=== PATIENT | male | born 1980 | race Hispanic/Latino ===

== ENCOUNTER 2021-04-16 11:49 | Emergency (ER) | payer SELFPAY ==
--- NOTE | 2021-04-16 12:02 | ED.GENADULT ---
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 Patient states he has not been feeling well for the last 5 days. They checked his blood sugar at work and sent him to be evaluated for his bilateral lower extremity swelling and elevated blood sugar. most of his medications have not been filled since May of last year. States they cannot get in with Dr. Williamson office. Has not taken his blood pressure medication in over 3 months. Last fill on half the medications was May 2020 Blood sugar in [facility] 215 Onset (ago): day(s) (5) Related Data Home Medications Medication Instructions Recorded Confirmed amlodipine 10 mg PO DAILY 04/16/21 04/16/21 atorvastatin 20 mg PO DAILY 04/16/21 04/16/21 lisinopril-hydrochlorothiazide 1 tablet PO DAILY 04/16/21 04/16/21 metformin 500 mg PO BID 04/16/21 04/16/21 metoprolol succinate 04/16/21 Allergies Allergy/AdvReac Type Severity Reaction Status Date / Time No Known Allergies Allergy Verified 04/16/21 12:03 Review of Systems Review of Systems: All systems reviewed & are unremarkable except as noted in HPI and below Constitutional: Constitutional: Reports no additional constitutional complaints, Denies chills and Denies fever(s) Eyes: Eyes: Reports no additional eye complaints ENT: Reports system reviewed and no additional complaints, except as documented Cardiovascular: Cardiovascular: Reports as per HPI, Denies chest pain, Denies rapid heart rate, Reports pedal edema, Reports leg edema and Denies radiating jaw, neck or arm pain Respiratory: Respiratory: Reports no additional respiratory complaints, Denies cough, Denies dyspnea and Denies wheezing Gastrointestinal: Gastrointestinal: Reports no additional gastrointestinal complaints, Denies abdominal pain, Denies nausea and Denies vomiting Musculoskeletal: Musculoskeletal: Reports no additional musculoskeletal complaints Integumentary/Breasts: Skin/Breast: Reports system reviewed and no additional complaints, except as docu Neurologic: Reports system reviewed and no additional complaints, except as documented Psychiatric: Psychiatric: Reports no additional psychiatric complaints Allergic/Immunologic: Allergic/Immunologic: Reports no additional allergic/immunologic complaints [facility] Past Medical History Medical History (Updated 04/16/21 @ 12:43 by Lisa Fishman) CHF (congestive heart failure) Hypertension Type II diabetes mellitus Surgical History Surgical History (Updated 04/16/21 @ 12:17 by Lisa Fishman) No significant past surgical history Comments At the time of my signature, I reviewed and agree with the nursing past medical, surgical, social, and family history. There is no relevant family history pertinent to the patient complaint. Exam Const: General: healthy appearing, no acute distress and alert Nutritional Appearance: well nourished Orientation/consciousness: patient oriented x3 Limitations: no limitations HENMT: Head: normal to inspection Ears: external ears normal Eyes: Pupils: Equal, round and reactive pupils present Neck: Neck: normal visual inspection, no lymphadenopathy and no meningeal signs Chest: Chest palpation & inspection: normal inspection of the chest Resp: Effort & Inspection: normal respiratory effort and no use of accessory muscles Auscultation: clear to auscultation bilaterally, no crackles, no rales, no rhonchi and no wheezes Cardio: Rate: regular rate Rhythm: regular rhythm GI: GI Palp: Yes Soft to palpation and No Tenderness to palpation present (GI)
[2021-04-16 12:07] VITALS: BP 166/109; PULSE 82; RESP 16; TEMP 36.5; O2SAT 98
[2021-04-16 12:11] LABS: Glucose Point of Care 215 mg/dl (65-105)
--- NOTE | 2021-04-16 12:22 | PC.NURSE ---
did request [facility] for further evaluation.
== END 2021-04-16 12:26 | disposition short-term general hospital (02) ==
LOC: EXPCOLL 11:57
PROVIDERS: Emergency Provider Nurse Practitioner
DX: R60.0 Localized edema (principal); I11.0 Hypertensive heart disease with heart failure; I50.9 Heart failure, unspecified; Z91.14 Patient's other noncompliance with medication regimen; E11.65 Type 2 diabetes mellitus with hyperglycemia
CPT/HCPCS: 82948; 99202; G0463

== ENCOUNTER 2021-04-16 12:50 | Emergency (ER) | payer SELFPAY ==
--- NOTE | ~2021-04-16 | XR_ITS ---
EXAMINATION: XR chest 2V DATE: 04/16/2021 22:03 INDICATION: Extremity edema. TECHNIQUE: Frontal and lateral views of the chest were obtained. COMPARISON: None. FINDINGS: The chest demonstrates clear lungs without pneumonia, pleural effusion, or pneumothorax. Th e heart size is normal. There is mild chronic anterior wedging of multiple vertebral bodies. IMPRESSION: 1. No acute cardiopulmonary disease. Reviewed, dictated and finalized at location A. R DIPPER
[2021-04-16 13:01] VITALS: BP 174/102; PULSE 92; RESP 20; TEMP 36.8; O2SAT 98
[2021-04-16 16:27] VITALS: BP 146/93; PULSE 84; TEMP 36.8; O2SAT 97
[2021-04-16 19:45] VITALS: BP 155/104; PULSE 85; TEMP 36.1; O2SAT 98
[2021-04-16 20:15] LABS: Glucose Point of Care 180 mg/dl (65-105)
[2021-04-16 21:29] VITALS: BP 179/80; PULSE 94; RESP 18; O2SAT 99
--- NOTE | 2021-04-16 21:35 | PC.NURSE ---
patient states he has not taken any of his medications for 2 year
--- NOTE | 2021-04-16 21:36 | ECG_ITS ---
Measurements Intervals [place] Rate: 85 P: 53 MS: 201 QRS: -40 QRSD: 114 T: 39 QT: 347 QTc: 414 Interpretive Statements SINUS RHYTHM LEFT AXIS DEVIATION BORDERLINE AV CONDUCTION DELAY BASELINE ARTIFACT- I, II, AVR, AVL, AVF BORDERLINE ECG Electronically Signed On 04-17-2021 6:38:17 SENIOR TALENT MANAGEMENT CONSULTANT by Sarbjit Park D.O.
[2021-04-16 21:56] LABS: Basophils Percent Auto 0.4 % (0.2-1.2); Eosinophils Absolute Auto 0.2 K/mm3 (0-0.3); Eosinophils Percent Auto 1.8 % (0-4.4); Hematocrit 42.8 % (42.0-52.0); Hemoglobin 14.1 g/dL (14.0-18.0); Immature Granulocyte Absolute 0.03 K/mm3 (0.00-0.031); Immature Granulocyte Percent A 0.4 % (0-0.5); Lymphocytes Absolute Auto 1.54 K/mm3 (0.9-3.2); Lymphocytes Percent Auto 18.1 % (18.3-44.2); Mean Corpuscular HGB Conc 32.9 g/dl (32-36); Mean Corpuscular Hemoglobin 27.7 pg (26-34); Mean Corpuscular Volume 84.1 fl (80-100); Mean Platelet Volume 8.5 fl (7.4-10.4); Monocytes Absolute Auto 0.8 K/mm3 (0.1-0.6); Monocytes Percent Auto 9.8 % (2.6-8.5); Neutrophils Absolute Auto 5.9 K/mm3 (1.3-6.7); Neutrophils Percent Auto 69.5 % (45.5-73.1); Platelet Count Result 369 k/mm3 (150-375); Red Blood Count 5.09 M/mm3 (4.6-6.20); White Blood Count 8.5 K/mm3 (4.5-10.0)
[2021-04-16 22:05] LABS: Alanine Aminotransferase 49 U/L (4-50); Albumin Level 4.5 g/dL (3.5-5.1); Alkaline Phosphatase 176 U/L (38-126); Anion Gap 12 mmol/L (8-16); Aspartate Amino Transferase 44 U/L (17-59); Blood Urea Nitrogen 20 mg/dL (9-20); Calcium 9.3 mg/dL (8.4-10.2); Carbon Dioxide 29 mmol/L (22-30); Chloride 98 mmol/L (98-107); Estimated CRCL calculation 157 ml/min; Estimated Glomerular Filt Rate > 60; Glucose 179 mg/dL (65-110); Potassium 3.4 mmol/L (3.4-5.0); Sodium 139 mmol/L (137-145)
[2021-04-16 22:13] LABS: D Dimer 0.33 ug/mL (<0.48)
[2021-04-16 22:14] LABS: NT Pro B Type Natriuretic Pept 17 pg/mL (5-100)
--- NOTE | 2021-04-16 22:28 | ED.GENADULT ---
HPI - General Adult General Chief complaint: Extremity Problem,Nontraumatic Stated complaint: bilateral leg swelling Time Seen by Provider: 04/16/21 21:26 History of Present Illness HPI narrative: Patient is a 41-year-old male who presents ER with lower extremity swelling. Reports that developed over the last 5 days and is bilateral. No pain. No chest pain or difficulty breathing. No recent long distance travel. No history of blood clots. Denies history of swelling previously. Reports he is not taking his diabetes or hypertension medication for the last 2 years and thinks that he may have swelling related to his diabetes. No orthopnea. Has not tried any compression socks. Patient tells me he does not have a PCP. Apparently when he was seen at the urgent care he told them he sees Dr. Williamson and that he had not taken his medication in 3 months. Related Data Allergies Allergy/AdvReac Type Severity Reaction Status Date / Time No Known Allergies Allergy Verified 04/16/21 12:03 Review of Systems Review of Systems: All systems reviewed & are unremarkable except as noted in HPI and below Constitutional: Constitutional: Denies chills, Denies fever(s) and Denies weakness ENT: Denies nasal congestion and Denies sore throat Cardiovascular: Cardiovascular: Denies chest pain, Denies rapid heart rate and Denies radiating jaw, neck or arm pain Respiratory: Respiratory: Denies cough, Denies dyspnea and Denies wheezing Musculoskeletal: Musculoskeletal: Denies arthralgias and Denies joint swelling Comments: Lower extremity edema PMFSH Past Medical History Medical History (Updated 04/16/21 @ 23:26 by Jake Bee MD) CHF (congestive heart failure) Hypertension Type II diabetes mellitus Surgical History Surgical History (Updated 04/16/21 @ 12:17 by Lisa Fishman) No significant past surgical history Exam Narrative: GENERAL: Well-appearing, well-nourished, and in no acute distress. HEAD: Normocephalic, atraumatic. EYES: PERRL and EOMI. CHEST: Clear to auscultation. No respiratory distress. HEART: Regular rate and rhythm. Normal peripheral pulses. ABDOMEN: Soft, nontender, nondistended. EXTREMITIES: Normal range of motion. 2+ edema. Negative homans sign. SKIN: Warm, dry, no rash. NEURO: Alert and oriented x3. PSYCH: Normal mood and affect. Course Course Emergency Course: Systolic blood pressure in the 150s and 60s more than the 170s. Patient educated on results. We will plan outpatient ultrasound tomorrow morning. [place] edema is likely physiologic. There is some chronic venous stasis changes starting to occur. Discussed long-term complications of uncontrolled diabetes hypertension and discussed that patient absolutely needs to find a PCP for follow-up. We will give the on-call PCP as well. Will start on metformin and HCTZ. Discussed using compression stockings. Vital Signs Vital signs: Vital Signs Temperature 98.3 F 04/16/21 13:01 Pulse Rate 92 04/16/21 13:01 Respiratory Rate 20 04/16/21 13:01 Blood Pressure 174/102 H 04/16/21 13:01 Pulse Oximetry 98 04/16/21 13:01 Temperature 96.9 F L 04/16/21 19:45 Pulse Rate 83 04/16/21 22:51 Respiratory Rate 18 04/16/21 22:51 Blood Pressure 151/97 H 04/16/21 22:51 Pulse Oximetry 95 04/16/21 22:51 Medical Decision Making Vital Signs Vital Signs: Vital Signs Temperature 98.3 F 04/16/21 13:01 Pulse Rate 92 04/16/21 13:01 Respiratory Rate 20 04/16/21 13:01 Blood Pressure 174/102 H 04/16/21 13:01 Pulse Oximetry 98 04/16/21 13:01 Temperature 96.9 F L 04/16/21 19:45 Pulse Rate 83 04/16/21 22:51 Respiratory Rate 18 04/16/21 22:51 Blood Pressure 151/97 H 04/16/21 22:51 Pulse Oximetry 95 04/16/21 22:51 Lab Data Result diagrams: 04/16/21 21:50 04/16/21 21:50 Labs: Lab Results 04/16/21 04/16/21 04/16/21 Range/Units 20:11 21:50 21:50 WBC 8.5 (4.5-10.0)
[2021-04-16 22:51] VITALS: BP 151/97; PULSE 83; RESP 18; O2SAT 95
== END 2021-04-16 23:42 | disposition home or self-care (01) ==
PROVIDERS: Emergency Provider Emergency Medicine
DX: R60.0 Localized edema (principal); E11.65 Type 2 diabetes mellitus with hyperglycemia; I11.0 Hypertensive heart disease with heart failure; I50.9 Heart failure, unspecified; Z91.14 Patient's other noncompliance with medication regimen; R94.31 Abnormal electrocardiogram [ECG] [EKG]
CPT/HCPCS: 36415; 71046; 80053; 82948; 83880; 85025; 85380; 93005; 99283

== ENCOUNTER 2021-04-17 08:09 | Outpatient (CLI) | payer SELFPAY ==
--- NOTE | ~2021-04-17 | US_ITS ---
EXAMINATION: US venous doppler LE EXAM DATE: 04/17/2021 08:50 INDICATION: R60.0 - Localized edema. TECHNIQUE: Multiple grayscale, color flow and Doppler images of the lower extremity deep venous syste ms bilaterally were obtained and reviewed. There is no prior study for comparison. FINDINGS: Right side: The right common femoral, femoral and profunda veins demonstrate normal color flow, respi ratory variation, augmentation and compressibility. Compressibility, color flow confirmed within the right popliteal, posterior tibial, peroneal, and greater saphenous veins. Left side: The left common femoral, femoral and profunda veins demonstrate normal color flow, respira tory variation, augmentation and compressibility. Compressibility, color flow confirmed within the l eft popliteal, posterior tibial, peroneal, and greater saphenous veins. IMPRESSION: No lower extremity deep venous thrombosis bilaterally. Reviewed, dictated and finalized at location B. AD GRINDER
== END 2021-04-17 08:10 | disposition home or self-care (01) ==
PROVIDERS: Visit Provider Emergency Medicine
DX: R60.0 Localized edema (principal)
CPT/HCPCS: 93970

== ENCOUNTER 2024-05-23 18:39 | Emergency (ER) | payer SELFPAY ==
[2024-05-23 19:14] VITALS: BP 149/91; PULSE 79; RESP 20; TEMP 37.4; O2SAT 97
[2024-05-23 19:22] VITALS: PULSE 79; RESP 20; O2SAT 97
--- NOTE | 2024-05-23 19:22 | ED_ITS ---
HPI - URI/Sore Throat General Chief Complaint: Upper Respiratory Infection Stated Complaint: Congestion Time Seen by Provider: 05/23/24 19:22 Source: patient, RN notes reviewed and old records reviewed Mode of arrival: ambulatory Limitations: no limitations History of Present Illness HPI Narrative: Patient presents with complaints of 3 days of flu-like symptoms. He reports that at onset of illness symptoms were more severe, has been taking TheraFlu and ibuprofen with good results. He is unsure of highest fever, but states he has not felt as though he has had a fever since the 1st day of illness. He does re port that he is more tired than normal. He is not in any obvious distress Related Data Home Medications ?Medication ?Instructions ?Recorded ?Confirmed ?Last Taken ?Type No Home Medications 05/23/24 Unknown History Allergies Allergy/AdvReac Type Severity Reaction Status Date / Time No Known Allergies Allergy Verified 05/23/24 18:59 Review of Systems Review of Systems: All systems reviewed & are unremarkable except as noted in HPI and below Constitutional: Constitutional: Reports no additional constitutional complaints, Reports body ache(s), Reports chills, Reports fever(s), Reports headache(s) and Reports lethargy ENT: Reports system reviewed and no additional complaints, except as documented, Reports nasal congestion and Reports nasal discharge Cardiovascular: Cardiovascular: Reports no additional cardiovascular complaints Respiratory: Respiratory: Reports no additional respiratory complaints and Reports cough Gastrointestinal: Gastrointestinal: Reports no additional gastrointestinal complaints [facility] Past Medical History Medical History (Updated 05/24/24 @ 00:01 by Aramis Roth) CHF (congestive heart failure) Hypertension Type II diabetes mellitus Surgical History Surgical History (Updated 04/16/21 @ 12:17 by Lisa Fishman APRN) No significant past surgical history Comments At the time of my signature, I reviewed and agree with the nursing past me dical, surgical, social, and family history. There is no relevant family history pertinent to the patient complaint. Exam Const: General: cooperative, no acute distress, alert and awake Orientation/consciousness: oriented to person, oriented to place and oriented to time HENMT: Head: normal to inspection Ears: TM's normal bilaterally Mouth: Yes moist mucous membranes Throat: postnasal drainage Resp: Effort & Inspection: normal respiratory effort and able to speak in complete sentences Auscultation: clear to auscultation bilaterally, no crackles, no rales, no rhonchi and no wheezes Cardio: Palpation: normal PMI Rate: regular rate Rhythm: regular rhythm Heart sounds: S1 normal heart sound present and S2 normal heart sound present Neuro: General: oriented to person, oriented to place and oriented to time Cranial nerves: Yes CN's II-XII intact bilaterally Psych: Appearance: grossly normal Thought process: Normal thought process present Insight: Good insight present (Psych) Judgement: Good judgement present (Psych) Course Course Level of Care: Express Care Visit Vital Signs Vital signs: Vital Signs Temperature 99.3 F 05/23/24 19:14 Pulse Rate 79 05/23/24 19:14 Respiratory Rate 20 05/23/24 19:14 Blood Pressure 149/91 H 05/23/24 19:14 Pulse Oximetry 97 05/23/24 19:14 Oxygen Delivery Room Air 05/23/24 19:14 Temperature 99.3 F 05/23/24 19:14 Pulse Rate 79 05/23/24 19:22 Respiratory Rate 20 05/23/24 19:22 Blood Pressure 149/91 H 05/23/24 19:14 Pulse Oximetry 97 05/23/24 19:22 Oxygen Delivery Room Air 05/23/24 19:14 Reviewed MDM - URI/Sore Throat MDM Narrative Medical decision making narrative: Patient with flu-like symptoms, negative covid and influenza. Suspect symptoms are viral in origin Supportive care measures discussed Discharge instructions reviewed with patient, as well as provided in writing per nursing staff. The instructions also include specific and strict return/GO TO THE ER as well as f/u information. All questions have been answered, and the patient deny any further questions with discharge and discharge plan. Some parts of this dictation were generated by voice recognition software and may contain typographical and/or grammatical inaccuracies. Differential Diagnosis Differential diagnosis: Likely upper respiratory infection, otitis media, viral infection and influenza Medical Records Attestation: I reviewed the patient's medical records. Lab Data Attestation: I reviewed the patient's lab results. 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
[2024-05-23 19:47] LABS: EDCOVIDSCREEN Negative (Negative); EDINFLUASCREEN Negative (Negative); EDINFLUBSCREEN Negative (Negative)
== END 2024-05-23 19:40 | disposition home or self-care (01) ==
PROVIDERS: Emergency Provider Nurse Practitioner Family
DX: B34.9 Viral infection, unspecified (principal); Z20.822 Contact with and (suspected) exposure to COVID-19; I11.0 Hypertensive heart disease with heart failure; I50.9 Heart failure, unspecified; E11.9 Type 2 diabetes mellitus without complications
CPT/HCPCS: 87426; 87804; 99212; G0463